=== PATIENT | female | born 1935 | race Caucasian/White ===

== ENCOUNTER → 2020-12-26 | Outpatient (CLI) | payer MEDICARE, OTHER ==
--- NOTE | 2020-12-26 17:23 | RAD ---
Site ID: [id number] EXAMINATION: XR RT WRIST 3VIEWS. HISTORY: 85 years Female Reason: RIGHT WRIST PAIN / Spl. Instructions: / History: . COMPARISON: None. FINDINGS: No fracture, dislocation or radiopaque foreign body. There is mild degenerative sclerotic change a t the carpometacarpal joint and metacarpophalangeal joint of the right thumb. There is minimal wideni ng of scapholunate interval. IMPRESSION: No acute process. Electronically signed by: Miguel Guadarrama MD (12/26/2020 5:20 PM) [id number]
== END ==
LOC: DXRAD 17:00
PROVIDERS: ATTEND Nurse Practitioner Family
DX: M19.031 Primary osteoarthritis, right wrist (principal)
CPT/HCPCS: 73110